=== PATIENT | male | born 1985 | race Caucasian/White ===

== ENCOUNTER 2017-06-03 20:49 | Emergency (ER) | payer OTHER ==
[~2017-06-03] VITALS: Ht 180.3 cm; Wt 108.9 kg
[2017-06-03] MEDS ORDERED: HYDROCODONE-AP1 EAC6 PO (21:09)
[2017-06-03] MEDS ORDERED: IBUPROFEN 800800 M1 PO (21:10)
[2017-06-03 21:46] VITALS: BP 160/90
== END 2017-06-03 21:47 | disposition home or self-care (01) ==
LOC: M.ERS 20:49
DX: M25.522 Pain in left elbow (principal); I10 Essential (primary) hypertension

== ENCOUNTER 2018-04-10 18:57 | Emergency (ER) | payer OTHER ==
[~2018-04-10] VITALS: Ht 180.3 cm; Wt 122.5 kg
[~2018-04-10 18:57] MED LIST: HYDROCODONE-AP1 EAC6 PO; IBUPROFEN 800800 M1 PO
[2018-04-10 20:32] LABS: ABSOLUTE BASOPHILS 0.1 thou/uL (0.0-0.2); ABSOLUTE EOSINOPHILS 0.2 thou/uL (0.0-0.7); ABSOLUTE LYMPHOCYTES 2.1 thou/uL (0.8-5.3); ABSOLUTE MONOCYTES 0.7 thou/uL (0.0-1.2); ABSOLUTE NEUTROPHILS 5.3 thou/uL (1.6-8.1); EOSINOPHILS 2.4 %; HEMATOCRIT 46.4 % (42.0-52.0); HEMOGLOBIN 15.8 gm/dL (14.0-18.0); LYMPHOCYTES 25.3 %; MCH 30.1 pg (26.0-34.0); MCHC 33.9 g/dL (28.0-37.0); MCV 88.7 fL (80.0-100.0); MONOCYTES 8.3 %; NUCLEATED RBCS 0 /100WBC; PLATELET COUNT* 238 thou/uL (150-400); RBC 5.23 mil/uL (4.50-6.00); RDW-CV 13.9 % (10.5-14.5); WBC 8.5 thou/uL (4.0-11.0)
[2018-04-10 20:34] LABS: CALCIUM 9.8 mg/dL (8.5-10.1); CREATININE 1.2 mg/dL (0.6-1.3); POTASSIUM 3.9 mmol/L (3.5-5.1)
[2018-04-10] MEDS ORDERED: FLEXERIL PO (22:52)
[2018-04-10 23:02] VITALS: BP 158/83
--- NOTE | 2018-04-11 13:46 | EKG ---
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
== END 2018-04-10 23:02 | disposition home or self-care (01) ==
LOC: M.ERS 18:57
PROVIDERS: Emergency Medicine
DX: R07.89 Other chest pain (principal); I10 Essential (primary) hypertension

== ENCOUNTER 2020-07-16 10:33 | Inpatient (IN) | payer OTHER ==
[~2020-07-16] VITALS: Ht 182.9 cm; Wt 145.1 kg
[~2020-07-16 10:33] MED LIST changes: +FLEXERIL PO
[2020-07-16 10:48] VITALS: BP 139/78
[2020-07-16 11:34] LABS: ABSOLUTE LYMPHOCYTES 0.7 thou/uL (0.8-5.3); ABSOLUTE MONOCYTES 0.2 thou/uL (0.0-1.2); ABSOLUTE NEUTROPHILS 4.5 thou/uL (1.6-8.1); BASOPHILS 0.6 %; HEMOGLOBIN 14.8 gm/dL (14.0-18.0); LYMPHOCYTES 13.5 %; MCH 29.2 pg (26.0-34.0); MCHC 33.7 g/dL (28.0-37.0); MCV 86.9 fL (80.0-100.0); MONOCYTES 3.9 %; MPV 8.9 fl. (7.2-11.1); NUCLEATED RBCS 0 /100WBC; PLATELET COUNT* 176 thou/uL (150-400); RBC 5.06 mil/uL (4.50-6.00); RDW-CV 14.6 % (10.5-14.5); WBC 5.5 thou/uL (4.0-11.0)
[2020-07-16 11:41] LABS: CALCIUM 8.1 mg/dL (8.5-10.1); CREATININE 1.1 mg/dL (0.6-1.3)
[2020-07-16 11:46] LABS: ALBUMIN 2.9 g/dL (3.4-5.0); TOTAL BILIRUBIN 0.4 mg/dL (<0.1-1.0); TOTAL PROTEIN 7.8 g/dL (6.4-8.2)
--- NOTE | 2020-07-16 15:44 | EKG ---
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 : 1985 Requested By: Shekhar Ortega Order Number: [id number] MD: Mani Horvath Measurements Intervals [place] Rate: 105 P: 41 [place]: 152 QRS: 44 QRSD: 96 T: -14 QT: 351 QTc: 465 Interpretive Statements Sinus tachycardia Low voltage, precordial leads Borderline T abnormalities, inferior leads Baseline wander in lead(s) V1,V2 Compared to ECG 04/10/2018 21:39:48 Low QRS voltage now present Sinus rhythm no longer present T-wave abnormality still present Electronically Signed On 07-16-2020 15:44:04 CDT by Mani Horvath [email or web address] <ELECTRONICALLY SIGNED> By: Mani Horvath MD, [facility] 07/16/20 1544 1106 1106 Mani Horvath MD, [facility] /EPI
[2020-07-16 15:45] VITALS: BP 110/69; BP 136/65
[2020-07-16 17:57] VITALS: BP 122/77; BP 124/72; BP 145/82
[2020-07-16 20:00] VITALS: BP 145/82
[2020-07-17] VITALS: BP 143/74
[2020-07-17 08:15] VITALS: BP 119/75
[2020-07-17 09:11] LABS: HEMATOCRIT 45.7 % (42.0-52.0); HEMOGLOBIN 15.2 gm/dL (14.0-18.0); MCH 28.8 pg (26.0-34.0); MCHC 33.3 g/dL (28.0-37.0); MCV 86.7 fL (80.0-100.0); MPV 9.1 fl. (7.2-11.1); RBC 5.28 mil/uL (4.50-6.00); RDW-CV 14.7 % (10.5-14.5); WBC 7.6 thou/uL (4.0-11.0)
[2020-07-17 09:22] LABS: CALCIUM 8.6 mg/dL (8.5-10.1); POTASSIUM 4.2 mmol/L (3.5-5.1)
[2020-07-17 09:26] LABS: URINE BILIRUBIN NEGATIVE (Negative); URINE BLOOD 1+ (Negative); URINE CLARITY CLEAR; URINE COLOR YELLOW; URINE GLUCOSE-RANDOM NEGATIVE (Negative); URINE KETONES NEGATIVE (Negative); URINE LEUKOCYTES-REFLEX NEGATIVE (Negative); URINE NITRITE-REFLEX NEGATIVE (Negative); URINE PROTEIN 1+ (Negative); URINE SPECIFIC GRAVITY >= 1.030 (1.005-1.030); URINE UROBILINOGEN 0.2 E.U./dl (0.2-1.0)
[2020-07-17 09:34] LABS: AMP/METHAMP Negative (Negative); BARBITURATES Negative (Negative); BENZODIAZEPINES Negative (Negative); COCAINE Negative (Negative); METHADONE Negative (Negative); OPIATES Negative (Negative); PCP Negative (Negative); THC Negative (Negative)
[2020-07-17 09:35] LABS: HYALINE CASTS 0-3 Few /LPF (None Seen); MUCUS 4-6 Moderate strn/LPF (None Seen)
[2020-07-17 09:39] LABS: AMORPHOUS URATES Few /LPF (None Seen)
[2020-07-17 09:40] LABS: BACTERIA-REFLEX None Seen /HPF (None Seen); SQUAMOUS NONE SEEN /LPF (0-3); URINE RBC 0-2 Rare /HPF (0-2); URINE WBC-REFLEX 0-5 Rare /HPF (0-5)
[2020-07-17 12:00] VITALS: BP 128/77
[2020-07-17 16:00] VITALS: BP 128/77
[2020-07-17 19:45] VITALS: BP 121/62
[2020-07-18 05:17] VITALS: BP 118/70
[2020-07-18 05:49] LABS: HEMATOCRIT 42.9 % (42.0-52.0); HEMOGLOBIN 14.2 gm/dL (14.0-18.0); MCH 28.8 pg (26.0-34.0); MCHC 33.1 g/dL (28.0-37.0); MPV 9.2 fl. (7.2-11.1); RBC 4.93 mil/uL (4.50-6.00); RDW-CV 15.1 % (10.5-14.5); WBC 7.3 thou/uL (4.0-11.0)
[2020-07-18 05:55] LABS: CALCIUM 7.7 mg/dL (8.5-10.1); CREATININE 0.9 mg/dL (0.6-1.3); POTASSIUM 4.4 mmol/L (3.5-5.1)
[2020-07-18 08:25] VITALS: BP 129/69
[2020-07-18] MEDS ORDERED: DEXAMETHASONE 44 M1 PO (08:59)
[2020-07-18 11:39] VITALS: BP 129/69
== END 2020-07-18 13:05 | disposition home or self-care (01) | DRG 177 ==
LOC: M.ERS 10:33 → M.TBA-ER 13:00 → M.2W 16:07
PROVIDERS: Family Medicine; Physician Assistant; ADMIT Internal Medicine; ATTEND Internal Medicine
PROC: XW033E5 Introduction of Remdesivir Anti-infective into Peripheral Vein, Percutaneous Approach, New Technology Group 5 (ICD-10-PCS; principal; 2020-07-16)
PROC: XW13325 Transfusion of Convalescent Plasma (Nonautologous) into Peripheral Vein, Percutaneous Approach, New Technology Group 5 (ICD-10-PCS; principal; 2020-07-16)
DX: U07.1 COVID-19 (principal); J96.01 Acute respiratory failure with hypoxia; Z68.41 Body mass index [BMI] 40.0-44.9, adult; E66.9 Obesity, unspecified; I10 Essential (primary) hypertension; E88.09 Other disorders of plasma-protein metabolism, not elsewhere classified; R74.01 Elevation of levels of liver transaminase levels; Z79.899 Other long term (current) drug therapy